=== PATIENT | male | born 1985 | race Two or more races ===

== ENCOUNTER 2020-06-23 05:55 | Day surgery (SDC) | payer OTHER ==
[~2020-06-23 05:55] MED LIST: TRUVADA 200 MG1 EACH PO
[2020-06-23] MEDS ORDERED: NEURONTIN300 MG PO (13:58)
[2020-06-23] MEDS ORDERED: ULTRAM50 MG PO (13:58)
[2020-06-23] MEDS ORDERED: DERMOPLAST FIRS78 GM TOP (13:59)
== END 2020-06-23 15:30 | disposition home or self-care (01) ==
LOC: CIR.AMB 05:55
PROVIDERS: ATTEND Surgery
DX: K62.82 Dysplasia of anus (principal); Z20.822 Contact with and (suspected) exposure to COVID-19